=== PATIENT | female | born 1975 | race Caucasian/White ===

== ENCOUNTER 2019-08-05 16:22 | Emergency (ER) | payer MEDICAID, SELFPAY ==
[2019-08-05 16:23] VITALS: BP 153/92; PULSE 90; RESP 20; TEMP 36.8; O2SAT 96; BMI 41.3
--- NOTE | 2019-08-05 16:52 | EKG12_ITS ---
Test Reason : CP Blood Pressure : / mmHG Vent. Rate : 083 BPM Atrial Rate : 083 BPM P-R Int : 144 ms QRS Dur : 092 ms QT Int : 352 ms P-R-T Axes : 033 006 019 degrees QTc Int : 413 ms Normal sinus rhythm Nonspecific T wave abnormality Abnormal ECG Confirmed by MEDHAT TRINH, SENDY ([id number]), web content editor ANDRES ESPINOSA ([id number]) on 08/08/2019 10:56:15 AM Referred By: ARIE Confirmed By:SENDY MELÉNDEZ MD
--- NOTE | 2019-08-05 16:53 | ED.VIS.CHEST ---
History of Present Illness Chief Complaint: Chest Pain Informant: Patient Onset: Days - 3- Activity at onset: - - gradual onset Timing: Continuous Quality: Pressure Location: Substernal Current Severity: Moderate, Severe Maximum Severity: Moderate, Severe Worsened By: Breathing. Not Worsened By: Exertion, Movement of Arm, Movement of Torso, Palpation Relieved By: Nothing Associated Symptoms: Dyspnea. Negative for: Nausea, Vomiting, Diaphoresis, Cough, Fever, Lightheadedness, Palpitations Narrative: Patient states she has a history of sarcoidosis. She developed lymphadenopathy in her axilla, groins, mediastinum. The mediastinal group was biopsied and found to be sarcoidosis as opposed to lymphoma. Her doctor has referred her to rheumatology in [place] but she has not been able to see them yet, her appointment was canceled due to the coronavirus pandemic, and rescheduled for later this month. She tried steroids once, a taper when she was having a flareup, it seemed to help in the beginning but then when she finished the steroid she had a significantly worse flare to the point of misery, and states that she can never take steroids again because the after result was much worse than what she took them for. The discomfort she is having is in the middle of her chest, making her feel short of breath like it is applying pressure to something inside of her chest, she assumes it is the lymph nodes that is causing her discomfort but she admits she does not know for sure, she is just going by the way it feels. She does not have any pain or swelling in her legs. She has had no recent long immobilization or travel out of the area, she has been getting around without any difficulty. No history of DVT or PE and she does not take any antiplatelet or anticoagulants for any reason. She takes nothing for sarcoidosis at this time. She denies any cough or fever recently. Prior Similar Symptoms: Yes - but never to this degree Recent Illness/Hospitalization: No - Past Medical History (1) Sarcoidosis Status: Chronic Past Medical History - Allergies and Home Meds Allergies/Adverse Reactions: Allergies ketorolac [From Toradol] Allergy (Verified 08/05/19 16:27) NEEDS FOLLOW-UP morphine Allergy (Verified 08/05/19 16:27) Vomiting topotecan [From Hycamtin] Allergy (Verified 08/05/19 16:27) Anaphylaxis STEROIDS Allergy (Uncoded 05/02/20 16:27) PT UNABLE TO RESPOND-NEEDS F/U Surgical History: - - Mediastinal lymph node biopsy Drugs: None Review of Systems General: Denies: Chills, Fever, Sweats Eyes: Denies: Visual changes - bilaterally, Diplopia ENT: Denies: Bilateral ear pain, Rhinorrhea, Sore throat Cardiovascular: Reports: Chest pain. Denies: Palpitations Respiratory: Reports: Dyspnea. Denies: Cough, Dyspnea on exertion, Orthopnea Gastrointestinal: Denies: Abdominal pain, Nausea, Vomiting, Diarrhea, Melena, Hematochezia Genitourinary: Denies: Dysuria, Hematuria, Frequency Musculoskeletal: Denies: Myalgias, Neck pain, Back pain, Swelling, Extremity Pain Skin: Denies: Rash, Wounds Neurological: Denies: Headache, Weakness, Numbness Physical Exam Vital Signs/Narrative: Vital Signs Temp Pulse Resp BP Pulse Ox 08/05/19 16:23 98.2 F 90 20 H 153/92 H 96 Inital Vital Signs reviewed: Yes General: Well nourished, Well developed, Obese, No Acute Distress - Conversive in full sentences Head: Normocephalic, Atraumatic Eyes: Perrl, EOMI ENT: Moist mucous membranes, No rhinorrhea, - - No stridor Neck: Supple, Nontender, No lymphadenopathy, No JVD Cardiovascular: Regular rate, Regular rhythm, No murmurs, Normal S1, Normal S2. Negative for: Tachycardia Respiratory: No distress, CTA bilaterally, Chest nontender Abdomen: Soft, Nontender, Nondistended, Normal bowel sounds Back: Nontender, Normal Inspection Extremities: Nontender, No edema. Negative for: Calf Tenderness Skin: Normal color, No rash, No Trauma Neurological: Alert, Oriented x3, Cranial nerves II-XII grossly intact, Normal Strength, Normal Sensation, Normal Gait Psychological: Normal affect, Normal Mood Diagnostic/Tx/Re-eval Impressions Chest X-Ray 08/05/19 17:40 IMPRESSION: No acute thoracic pathology. Electronically Signed: Florin Underwood, at 17:54 EDT Tel , Service support , 08/05/19 17:40 Chest PA and Lateral [RAD] Stat Laboratory Results 08/05/19 08/05/19 08/05/19 17:28 17:28 17:28 WBC 10.5 RBC 5.13 Hgb 13.0 Hct 41.2 MCV 80.3 L MCH 25.3 L MCHC 31.6 L RDW Std Deviation 40.8 RDW Coeff of Ekta 14.4 Plt Count 384 MPV 9.6 Immature Gran % (Auto) 0.600 Neut % (Auto) 68.7 Lymph % (Auto) 19.6 [place] % (Auto) 7.1 Eos % (Auto) 3.4 Baso % (Auto) 0.6 Absolute Neuts (auto) 7.2 Absolute Lymphs (auto) 2.05 Nucleated RBC % 0 D-Dimer Quant (PE/DVT) 0.32 Sodium 139 Potassium 4.0 Chloride 104 Carbon Dioxide 30.0 Anion Gap 5 BUN 14 Creatinine 1.09 H Estim Creat Clear Calc 69.55 Est GFR (MDRD) Af Amer 70 Est GFR (MDRD) Non-Af 58 L BUN/Creatinine Ratio 12.8 Glucose 89 Calcium 9.4 Troponin I < 0.015 - Rhythm Strip Rhythm Strip: Sinus Rhythm Rate: 83 Ectopy: None - EKG Initial EKG Interpretation: Sinus Rhythm, No Acute Injury Pattern - Normal EKG Prior: No Prior Treatment: GI Cocktail - no effect - Medical Decision Making Work-up is unremarkable and reassuring, chest x-ray shows no sign of mediastinal widening, and her d-dimer being negative with no sign of any infiltrates on the x-ray, I do not think CT of the thorax is really necessary right now. I discussed that with her, she is in agreement. Certainly it is possible that her sarcoidosis is related to her symptoms, and we discussed treating with prednisone. However she had such a bad reaction after she stopped it last time that she was told never to go on it again, so obviously we are avoiding that. She cannot take ketorolac, I offered other treatment options such as albuterol or nitroglycerin, if pulmonary reactive airway is in the differential or esophageal spasm, but she declined right now and states she is feeling stable enough to be discharged home and follow-up. We discussed reasons to return which she is welcome to do. I did try to discuss with rheumatology but we have no one impression printer or available, and she does not know who she has an appointment with, she has not seen them yet or established care yet. I am not comfortable with the side effect profile of medicines such as cyclophosphamide or azathioprine, I think she should follow-up with rheumatology before being started on 1 of those medications. ED Disposition - Plan for ED Patient: Disposition: Home or Assisted Living Diagnosis: Chest pain, unspecified, Sarcoidosis Instructions: Pulmonary Sarcoidosis Referrals: Kiana Conti MD [STAFF PHYSICIAN] - (call for appt, as another alternative for Rheumatology)
--- NOTE | 2019-08-05 17:25 | NURSING ---
NO OLD EKGS
[2019-08-05] MEDS: Mag Hydrox/Al Hydrox/Simeth 30 ML UDC PO (17:28)
[2019-08-05 17:31] VITALS: BP 120/72; PULSE 81; RESP 18; O2SAT 98
[2019-08-05 17:40] LABS: Absolute Lymphocyte Count 2.05 X10^3/uL (0.83-4.51); Absolute Neutrophil Count 7.2 X10^3/uL (2.0-7.7); Basophil# 0.06 X10^3/uL; Basophil% 0.6 % (0-1); Eosinophil# 0.36 X10^3/uL; Eosinophils% 3.4 % (0-5); Hematocrit 41.2 % (37-47); Lymphocyte # 2.05 X10^3/ul (4.0); Lymphocyte % 19.6 % (19-41); Mean Corp Hgb Conc 31.6 g/dL (32-36); Mean Corpuscular Hgb 25.3 pg (27.0-32.0); Mean Corpuscular Volume 80.3 fL (81-99); Mean Platelet Vol. 9.6 fl (6.2-12.0); Monocyte# 0.74 X10^3/uL; Monocyte% 7.1 % (0-10); NRBC Flagged by Analyzer 0 % (0-5); Neutrophil # 7.18 X10^3/uL (2.7-7.7); Neutrophil % 68.7 % (47-70); Platelet Count 384 K/mm3 (150-450); RBC Distribution Width CV 14.4 % (11.6-14.6); RBC Distribution Width SD 40.8 fl (35.1-43.9); Red Blood Count 5.13 M/mm3 (4.2-5.4); White Blood Count 10.5 K/mm3 (4.4-11.0)
--- NOTE | 2019-08-05 17:40 | RAD_ITS ---
STUDY: X-RAY CHEST REASON FOR EXAM: Female, 43 years old. Chest pain TECHNIQUE: Frontal and lateral views of the chest COMPARISON: None. FINDINGS: The lungs are clear. There are no pleural effusions. There is no pneumothorax. The heart is normal in size. The visualized osseous structures are within normal limits. RAD/Chest PA and Lateral IMPRESSION: No acute thoracic pathology. Electronically Signed: Florin Underwood, at 17:54 EDT Tel , Service support ,
[2019-08-05 17:47] LABS: D-Dimer Quantitative (DVT/PE) 0.32 FEU/ug/m (0.27-0.49)
[2019-08-05 17:51] LABS: Anion Gap 5 (5-15); BUN 14 mg/dL (7-18); BUN/Creat Ratio 12.8 RATIO (10-20); Calcium,Total 9.4 mg/dL (8.5-10.1); Chloride 104 mmol/L (98-107); Creatinine, Serum 1.09 mg/dL (0.55-1.02); EST Glomerular Filtration Rate 58 mL/min (>60); Est Glom Filt Rate - Afr Amer 70 mL/min (>60); Estimated Creatinine Clearance 69.55 ml/min; Glucose 89 mg/dL (74-106); Sodium Level 139 mmol/L (136-145)
[2019-08-05 19:00] VITALS: PULSE 83; RESP 18; O2SAT 98
[2019-08-05 20:04] VITALS: PULSE 75; RESP 18; O2SAT 98
== END 2019-08-05 20:12 | disposition home or self-care (01) ==
PROVIDERS: Emergency Provider Emergency Medicine
DX: R07.9 Chest pain, unspecified (principal); D86.9 Sarcoidosis, unspecified; E66.9 Obesity, unspecified; Z79.899 Other long term (current) drug therapy
CPT/HCPCS: 71046; 80048; 84484; 85025; 85379; 93005; 99285; A4216